=== PATIENT | female | born 1995 | race African-American/Black ===

== ENCOUNTER → 2017-05-02 | Outpatient (REF) | LOC: WSOH 09:29 | DX: Z02.89 Encounter for other administrative examinations (principal) ==

== ENCOUNTER → 2017-05-07 | Outpatient (REF) | LOC: WSOH 13:53 | DX: Z02.1 Encounter for pre-employment examination (principal) ==

== ENCOUNTER → 2017-05-09 | Outpatient (REF) | LOC: WSOH 15:00 | DX: Z02.89 Encounter for other administrative examinations (principal) ==

== ENCOUNTER → 2017-06-04 | Outpatient (REF) | LOC: WSOH 11:20 | DX: Z02.89 Encounter for other administrative examinations (principal) ==

== ENCOUNTER 2018-03-28 23:25 | Emergency (ER) | payer OTHER ==
[~2018-03-28] VITALS: Ht 167.6 cm; Wt 103.2 kg
[2018-03-28 23:31] VITALS: BP 125/71; TEMP 98.1
[2018-03-28] MEDS ORDERED: VITAMIN B12 781 TAB (23:51)
[2018-03-28] MEDS ORDERED: K-DUR 10 MEQ T10 MEQ PO (23:52)
[2018-03-28] MEDS ORDERED: MULTI VITAMINS1 TAB PO (23:52)
[2018-03-28] MEDS ORDERED: TEMOVATE0.05% TOP (23:53)
[2018-03-28] MEDS ORDERED: CEPHALEXIN500 M1 PO (23:54)
[2018-03-29] MEDS ORDERED: CEPHALEXIN500 M1 PO (00:06)
[2018-03-29 00:28] VITALS: PULSE 81
== END 2018-03-29 00:11 | disposition home or self-care (01) ==
LOC: COL.ER 23:25
DX: H92.02 Otalgia, left ear (principal)

== ENCOUNTER 2018-12-31 11:28 | Emergency (ER) | payer OTHER ==
[~2018-12-31] VITALS: Ht 170.2 cm; Wt 101.4 kg
[~2018-12-31 11:28] MED LIST: CEPHALEXIN500 M1 PO; K-DUR 10 MEQ T10 MEQ PO; MULTI VITAMINS1 TAB PO; TEMOVATE0.05% TOP; VITAMIN B12 781 TAB
[2018-12-31 11:33] VITALS: BP 127/74
[2018-12-31] MEDS ORDERED: GLUCOPHAGE500 MG/TAB PO (11:49)
[2018-12-31] MEDS ORDERED: CRYSELLE 30 MCG1 TAB PO (11:50)
[2018-12-31 12:03] LABS: STREP SCREEN POSITIVE
[2018-12-31] MEDS ORDERED: AMOXICILLIN 50500 MG PO (12:09)
[2018-12-31 12:34] VITALS: PULSE 64; TEMP 99.6
== END 2018-12-31 12:34 | disposition home or self-care (01) ==
LOC: COL.ER 11:28
PROVIDERS: Family Medicine
DX: J32.9 Chronic sinusitis, unspecified (principal); Z79.84 Long term (current) use of oral hypoglycemic drugs

== ENCOUNTER 2019-10-16 10:49 | Outpatient (RCR) | payer OTHER ==
[~2019-10-16 10:49] MED LIST changes: +AMOXICILLIN 50500 MG PO; +CRYSELLE 30 MCG1 TAB PO; +GLUCOPHAGE500 MG/TAB PO
== END 2019-12-29 13:10 | disposition home or self-care (01) ==
LOC: WSOH 10:49
DX: S39.012A Strain of muscle, fascia and tendon of lower back, initial encounter (principal); F32.9 Major depressive disorder, single episode, unspecified; N92.6 Irregular menstruation, unspecified; E88.89 Other specified metabolic disorders; L02.91 Cutaneous abscess, unspecified; Y99.0 Civilian activity done for income or pay

== ENCOUNTER → 2020-06-21 | Outpatient (CLI) | payer OTHER ==
[2020-06-21 19:00] LABS: BASO % 0.4 % (0.0-2.0); EOS # 0.1 (0.0-0.7); EOS % 0.8 % (0-4.0); GRAN # 6.5 (1.4-6.5); GRAN % 60.7 % (42.2-75.2); HEMATOCRIT 38.7 % (37.0-47.0); HEMOGLOBIN 12.7 g/dl (12.5-16.0); LYMPH # 3.3 (1.2-3.4); LYMPH % 30.7 % (20.0-51.0); MEAN CELL VOLUME 89 fl (80.0-100.0); MEAN CORPUSCULAR HEMOGLOBIN 29 pg (27.0-31.0); MEAN CORPUSCULAR HGB CONC 33 g/dl (33.0-37.0); MONO # 0.8 (0.1-0.6); MONO % 7.1 % (1.7-9.3); PLATELET COUNT 309 K/mm3 (130-400); RED BLOOD COUNT 4.34 M/mm3 (4.10-5.30)
[2020-06-21 19:13] LABS: ALBUMIN 4.5 gm/dL (3.5-5.0); BILIRUBIN,TOTAL 0.2 mg/dL (0.0-1.0); CALCIUM 9.7 mg/dL (8.4-10.2); CREATININE, serum 0.68 (0.52-1.25); POTASSIUM 4.5 mmol/L (3.4-5.0); TOTAL PROTEIN 8.1 gm/dL (6.4-8.2)
== END ==
LOC: COL.LAB 18:41
PROVIDERS: Nurse Practitioner Family
DX: L98.9 Disorder of the skin and subcutaneous tissue, unspecified (principal)

== ENCOUNTER 2020-08-03 18:07 | Emergency (ER) | payer OTHER ==
[~2020-08-03] VITALS: Ht 170.2 cm; Wt 104.5 kg
[2020-08-03 18:13] VITALS: TEMP 99.2
[2020-08-03 20:38] VITALS: BP 145/70; PULSE 80
== END 2020-08-03 20:58 | disposition home or self-care (01) ==
LOC: COL.ER 18:07
DX: R51.9 Headache, unspecified (principal); Z79.84 Long term (current) use of oral hypoglycemic drugs
CPT/HCPCS: J0595; J1885; J2405